=== PATIENT | male | born 1965 | race Native Hawaiian/Other Pacific Islander ===

== ENCOUNTER 2016-12-27 07:57 | Outpatient (CLI) | payer OTHER ==
[~2016-12-27] VITALS: Ht 30.5 cm; Wt 0.5 kg
== END 2016-12-27 09:00 | disposition home or self-care (01) ==
LOC: NM 07:57
DX: R53.83 Other fatigue (principal); R06.09 Other forms of dyspnea
CPT/HCPCS: A9500; J2785